=== PATIENT | female | born 2005 | race Caucasian/White ===

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

== ENCOUNTER 2025-02-01 22:21 | Emergency (ER) | payer OTHER ==
[~2025-02-01] VITALS: Ht 149.9 cm; Wt 66.4 kg
[2025-02-01 22:35] VITALS: TEMP 97.2
[2025-02-02] MEDS: NS (Normal Saline) 0.9% 1,000 ML IV ONE (00:35)
[2025-02-02 00:49] LABS: BASO # 0.0 10^3/uL (0.0-0.2); BASO % 0.3 % (0.0-1.0); EOS # 0.0 10^3/uL (0.0-0.5); EOS % 0.1 % (0.0-3.0); LYMPH # 1.5 10^3/uL (1.5-5.0); LYMPH % 11.9 % (24.0-44.0); MONO # 0.8 10^3/uL (0.0-0.8); MONO % 6.0 % (2.0-8.0); NEUTROPHILS # 10.4 10^3/uL (1.5-8.5); NEUTROPHILS % 81.3 % (36.0-66.0); PLATELET COUNT, AUTOMATED 227 10^3/uL (150-450)
[2025-02-02 01:14] LABS: CALCIUM LEVEL 9.1 MG/DL (8.5-10.1); CARBON DIOXIDE LEVEL 25 MMOL/L (20-31); CHLORIDE LEVEL 107 MMOL/L (98-107); CREATININE FOR GFR 0.77 MG/DL (0.55-1.30); GLOMERULAR FILTRATION RATE > 90.0 (>60); POTASSIUM SERUM 4.2 MMOL/L (3.5-5.1); SODIUM LEVEL 143 MMOL/L (136-145)
[2025-02-02 02:30] VITALS: O2SAT 100
[2025-02-02 02:42] VITALS: BP 90/56
== END 2025-02-02 02:55 | disposition home or self-care (01) ==
LOC: M ED 22:21
DX: M25.512 Pain in left shoulder (principal); Y04.8XXA Assault by other bodily force, initial encounter; Y99.9 Unspecified external cause status